=== PATIENT | male | born 1985 | race Caucasian/White ===

== ENCOUNTER 2016-12-03 18:23 | Emergency (ER) | payer BC ==
--- NOTE | 2016-12-05 21:55 | ER ---
ADMIT: 12/03/2016 RM/LOC: ER [facility] MR#: [id number] [address] [id number] [address] [place] [address] Emergency Room Report SEX: M AGE: 31 : 1985 DATE: 12/03/2016 ADDENDUM: This patient comes into the ER because he was bit by his girlfriend's dog. Both him and his girlfriend's dog were chasing a stick, they started to fight, he got in the middle of it and got bit by the dog accidentally. He has a puncture wound in the left thenar eminence. He has good range of motion of the thumb. Sensation is intact. X-ray was negative for any fractures or foreign body. He was placed on Augmentin, given his tetanus booster, and we did get a hold of [employer]. I wrote a prescription for Augmentin, and we will have him follow up with his primary if any signs of infection. Please see my T-sheet. MIREYA Del Cid / Luis Hussein MD / paulette JOB #: [id number] CC: Kwasi Luna MD, Attending Physician Angel Govea DO, Family Physician
== END 2016-12-03 20:07 | disposition home or self-care (01) ==
LOC: ER 18:23
DX: S61.432A Puncture wound without foreign body of left hand, initial encounter (principal); Z23 Encounter for immunization; W54.0XXA Bitten by dog, initial encounter